=== PATIENT | female | born 1945 | race Caucasian/White ===

== ENCOUNTER 2020-05-01 18:22 | Emergency (ER) | payer MEDICARE, MEDICAID ==
[2020-05-01] MEDS ORDERED: Cyclobenzaprine 10 MG Tab PO STA (19:28)
[2020-05-01] MEDS ORDERED: Ketorolac 30 MG/ML SDV IM STA (19:28)
[2020-05-01] MEDS ORDERED: traMADol 50 MG Tab PO ONE (19:28)
--- NOTE | 2020-05-01 20:45 | EDM.PDOC ---
ED HPI GENERAL MEDICAL PROBLEM - General Chief Complaint: General Stated Complaint: Pain left flank, after falling. Time Seen by Provider: 05/01/20 18:30 Source of Information: Reports: Patient History Limitations: Reports: No Limitations - History of Present Illness INITIAL COMMENTS - FREE TEXT/NARRATIVE: Patient presented to the ED because of low back pain after falling. She is able to ambulate and rate her pain 4/10. - Related Data Allergies Allergy/AdvReac Type Severity Reaction Status Date / Time Penicillins Allergy Throat Verified 05/01/20 19:24 Tightness Home Meds: Home Meds Acetaminophen [Tylenol] 650 mg PO Q4H PRN 05/01/20 [History] Apixaban [Eliquis] 5 mg PO Q12H 05/01/20 [History] Cyclobenzaprine [Flexeril] 10 mg PO Q8H PRN #15 tab 05/01/20 [Rx] Donepezil HCl [Aricept] 5 mg PO BEDTIME 05/01/20 [History] Ferrous Sulfate [Iron] 325 mg PO DAILY 05/01/20 [History] Insulin Aspart [NovoLOG] 0 unit SQ ASDIRECTED 05/01/20 [History] Insulin Aspart [NovoLOG] 4 unit SQ 11,17 05/01/20 [History] Insulin Aspart [NovoLOG] 12 unit SQ 08 05/01/20 [History] Insulin Glarg,Human.Rec.Analog [Lantus Solostar] 12 unit SUBCUT BEDTIME 05/01/20 [History] Loperamide [Imodium AD] 2 mg PO QID PRN 05/01/20 [History] Melatonin 6 mg PO BEDTIME 05/01/20 [History] Nicotine [Habitrol] 21 mg TD DAILY PRN 05/01/20 [History] Sennosides/Docusate Sodium [Senna Plus 8.6-50 mg Tablet] 1 each PO BID PRN 05/01/20 [History] Sertraline HCl 50 mg PO DAILY 05/01/20 [History] atorvaSTATin [Lipitor] 40 mg PO BEDTIME 05/01/20 [History] hydrALAZINE [Apresoline] 25 mg PO Q6H PRN 05/01/20 [History] lisinopriL [Lisinopril] 20 mg PO DAILY 05/01/20 [History] metFORMIN HCl [Metformin HCl ER] 1,000 mg PO 08,17 05/01/20 [History] traMADol HCl [Tramadol HCl] 100 mg PO Q8H PRN #15 tablet 05/01/20 [Rx] Past Medical History Musculoskeletal History: Reports: Other (See Below) Other Musculoskeletal History: Ongoing left shoulder discomfort. 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 History of surgery to L4 and L5. Psychiatric History: Reports: Other (See Below) Other Psychiatric History: Memory loss. - Past Surgical History Musculoskeletal Surgical History: Reports: Other (See Below) Other Musculoskeletal Surgeries/Procedures:: History of knee and hip surgeries, patient unable to specify. Social & Family History - Tobacco Use Tobacco Use Status *Q: Current Every Day Tobacco User Years of Tobacco use: 50 Packs/Tins Daily: 0.5 ED ROS GENERAL - Review of Systems Review Of Systems: See Below Constitutional: Reports: No Symptoms HEENT: Reports: No Symptoms Respiratory: Reports: No Symptoms Cardiovascular: Reports: No Symptoms Endocrine: Reports: No Symptoms GI/Abdominal: Reports: No Symptoms Musculoskeletal: Reports: Back Pain, Muscle Stiffness Skin: Reports: No Symptoms Neurological: Reports: No Symptoms Psychiatric: Reports: No Symptoms ED EXAM, GENERAL - Physical Exam Exam: See Below Exam Limited By: No Limitations General Appearance: Alert, No Apparent Distress Eye Exam: Bilateral Eye: PERRL Ears: Normal External Exam, Normal Canal Nose: Normal Inspection, Normal Mucosa, No Blood Throat/Mouth: Normal Inspection, Normal Lips, Normal Teeth Head: Atraumatic, Normocephalic Neck: Normal Inspection, Supple, Non-Tender, Full Range of Motion Respiratory/Chest: No Respiratory Distress, Lungs Clear, Normal Breath Sounds Cardiovascular: Normal Peripheral Pulses, Regular Rate, Rhythm, No Edema GI/Abdominal: Normal Bowel Sounds, Soft, Non-Tender, No Organomegaly Back Exam: Muscle Spasm, Vertebral Tenderness Extremities: Normal Inspection, Normal Range of Motion, Non-Tender Course - Vital Signs Text/Narrative:: XRAY-lumbar spine-DDD,mild scoliosis Toradol 30 mg IM x1 Flexeril 10 mg PO x1 Tramadol 100 mg PO x1 Last Recorded V/S: Last Vital Signs Temp 36.9 C 05/01/20 20:55 Pulse 57 L 05/01/20 20:55 Resp 18 05/01/20 20:55 BP 110/82 05/01/20 20:55 Pulse Ox 100 05/01/20 20:55 - Orders/Labs/Meds Orders: Active Orders 24 hr Category Date Time Status Lumbar Spine 2 or 3V [CR] Stat Exams 05/01/20 19:28 Taken Meds: Medications Discontinued Medications Generic Name Dose Route Start Last Admin Trade Name Freq PRN Reason Stop Dose Admin Cyclobenzaprine HCl 10 mg 05/01/20 19:28 05/01/20 19:37 Cyclobenzaprine 10 Mg Tab PO 05/01/20 19:29 10 mg NOW STA Administration Ketorolac Tromethamine 30 mg 05/01/20 19:28 05/01/20 19:33 Ketorolac 30 Mg/Ml Sdv IM 05/01/20 19:29 30 mg NOW STA Administration Tramadol HCl 100 mg 05/01/20 19:28 05/01/20 19:37 Tramadol 50 Mg Tab PO 05/01/20 19:29 100 mg ONETIME ONE Administration Departure - Departure Time of Disposition: 20:45 Disposition: DC/Tfer to [facility] Condition: Good Clinical Impression: Low back pain, Contusion, DDD (degenerative disc disease), lumbar - Discharge Information Prescriptions: Cyclobenzaprine [Flexeril] 10 mg PO Q8H PRN #15 tab PRN Reason: Spasms traMADol HCl [Tramadol HCl] 100 mg PO Q8H PRN #15 tablet PRN Reason: Pain Instructions: Acute Back Pain, Adult, Contusion, [id number] Referrals: PCP,None [Primary Care Provider] - Forms: ED Department Discharge Additional Instructions: Please read discharge instructions on Low back jose and contusion Apply ice or heat whichever makes it feel better Take all the Following medications at the same time for better pain relief: Tramadol 100 mg, tylenol 1000 mg, flexeril 10 mg every 8 hours as needed for pain and muscle spasm Follow up as needed Sepsis Event Note (ED) - Evaluation Sepsis Screening Result: No Definite Risk - Focused Exam Vital Signs: Vital Signs Temp Pulse Resp BP Pulse Ox 05/01/20 20:55 36.9 C 57 L 18 110/82 100 05/01/20 18:25 36.9 C 60 18 166/69 H 99 - My Orders Last 24 Hours: My Active Orders 05/01/20 19:28 Lumbar Spine 2 or 3V [CR] Stat - Assessment/Plan Last 24 Hours: My Active Orders 05/01/20 19:28 Lumbar Spine 2 or 3V [CR] Stat
== END 2020-05-01 21:38 ==
LOC: FB.ED 18:22
DX: S30.0XXA Contusion of lower back and pelvis, initial encounter (principal); M51.36 Other intervertebral disc degeneration, lumbar region; Z72.0 Tobacco use; Z88.0 Allergy status to penicillin; Z79.01 Long term (current) use of anticoagulants; Z79.899 Other long term (current) drug therapy; W18.30XA Fall on same level, unspecified, initial encounter; Y93.01 Activity, walking, marching and hiking
CPT/HCPCS: 72100; 96372; 99284; A9270; J1885